=== PATIENT | female | born 1995 | race Caucasian/White ===

== ENCOUNTER → 2023-07-16 07:00 | Outpatient (CLI) | payer OTHER, SELFPAY ==
--- NOTE | 2023-07-16 07:03 | DI.US.S_ITS ---
PROCEDURE: US ABDOMEN LIMITED INDICATIONS: LLQ PAIN TECHNIQUE: Real-time scanning was performed of the left lower quadrant, with image documentation. COMPARISON: None. FINDINGS: No sonographic abnormality of a hernia or mass on the provided grayscale images in the left lower quadrant. IMPRESSION: No sonographic abnormality in the left lower quadrant. Dictated by: Jonathon Clemente M.D. on 07/16/2023 at 10:06 Approved by: Jonathon Clemente M.D. on 07/16/2023 at 10:09
== END ==
LOC: US 07:02
PROVIDERS: Referring Provider Family Medicine; Visit Provider Family Medicine
DX: R10.32 Left lower quadrant pain (principal)
CPT/HCPCS: 76705